=== PATIENT | male | born 1960 | race Caucasian/White ===

== ENCOUNTER 2022-05-30 05:36 | Day surgery (SDC) | payer OTHER ==
[~2022-05-30] VITALS: Ht 177.8 cm; Wt 96.3 kg
[2022-05-30] MEDS ORDERED: LIDOCAINE 4% 50 ML SOLUTION TP ONE (05:37)
[2022-05-30] MEDS ORDERED: BENZOCAINE 20% 50 MCG/SPRAY 57 GM TP ONE (05:37)
[2022-05-30] MEDS ORDERED: LIDOCAINE 2% 11 ML JELLY TP ONE (05:37)
[2022-05-30] MEDS ORDERED: SODIUM CHLORIDE 0.9% 1,000 ML ONE (06:35)
[2022-05-30 06:58] LABS: COVID AG,FIA SOURCE NASAL SWAB
[2022-05-30] MEDS ORDERED: FentaNYL CITRATE PF 100 MCG/2 ML VIAL ONE (07:28)
[2022-05-30] MEDS ORDERED: MIDAZOLAM HCL 5 MG/ML VIAL ONE ×2 (07:29→07:31)
[2022-05-30 07:56] LABS: GLUCOMETER DEV NAME(LOC) SDS.; GLUCOSE,POINT OF CARE 127 MG/DL (70-110)
[2022-05-30] MEDS ORDERED: LISI-658 PO (07:56)
[2022-05-30] MEDS ORDERED: METF-1211 PO (07:56)
[2022-05-30] MEDS ORDERED: CARV25 PO (08:25)
[2022-05-30] MEDS ORDERED: EMPA25TA3 PO (08:26)
[2022-05-30] MEDS ORDERED: ATOR40TA28 PO (08:27)
[2022-05-30] MEDS ORDERED: MethylPREDNISolone SOD SUCC 125 MG/2 ML VIAL ONE (08:43)
[2022-05-30] MEDS ORDERED: MethylPREDNISolone SOD SUCC 125 MG/2 ML VIAL IVP ONE (09:00)
[2022-05-30] MEDS ORDERED: SODIUM CHLORIDE 0.9% 1,000 ML IV ONE (09:45)
[2022-05-30] MEDS ORDERED: OXYGEN THERAPY IH SCH (20:00)
== END 2022-05-30 10:40 | disposition home or self-care (01) ==
LOC: SURGERY 05:36
PROVIDERS: ATTEND Internal Medicine Critical Care Medicine
DX: J38.4 Edema of larynx (principal); B37.0 Candidal stomatitis; I10 Essential (primary) hypertension; E11.9 Type 2 diabetes mellitus without complications; Z79.899 Other long term (current) drug therapy; Z98.890 Other specified postprocedural states
CPT/HCPCS: 31623; 88112; 82962; 87206; 87101; 87220; 87070; 88305; 88312; 31624; 71045; 87015; 87426; J3010; J2930; J2250; Q9967; J7030; C9803; Z7610